=== PATIENT | female | born 1945 | race Two or more races ===

== ENCOUNTER 2021-12-04 06:51 | Day surgery (SDC) | payer OTHER ==
[~2021-12-04 06:51] MED LIST: COZAAR100 MG PO; LAMICTAL100 M1 PO; LEXAPR PO; LIPITOR80 MG PO; TOPROL XL100 M1 PO
== END 2021-12-04 17:30 | disposition home or self-care (01) ==
LOC: CIR.AMB 06:51
PROVIDERS: ATTEND Orthopaedic Surgery Hand Surgery
DX: S52.531A Colles' fracture of right radius, initial encounter for closed fracture (principal); F17.210 Nicotine dependence, cigarettes, uncomplicated; Z71.6 Tobacco abuse counseling; I25.10 Atherosclerotic heart disease of native coronary artery without angina pectoris; Z95.5 Presence of coronary angioplasty implant and graft; F41.9 Anxiety disorder, unspecified; M19.90 Unspecified osteoarthritis, unspecified site; I25.2 Old myocardial infarction; E78.5 Hyperlipidemia, unspecified; Z20.822 Contact with and (suspected) exposure to COVID-19